=== PATIENT | male | born 1985 | race Caucasian/White ===

== ENCOUNTER 2023-01-22 11:51 | Emergency (ER) | payer SELFPAY ==
[2023-01-22 12:15] VITALS: BP 137/81
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
== END 2023-01-22 13:01 | disposition home or self-care (01) ==
LOC: ED 11:51
DX: S20.212A Contusion of left front wall of thorax, initial encounter (principal); S00.81XA Abrasion of other part of head, initial encounter; V89.2XXA Person injured in unspecified motor-vehicle accident, traffic, initial encounter; Y92.410 Unspecified street and highway as the place of occurrence of the external cause
CPT/HCPCS: 99283